=== PATIENT | female | born 1940 | race Caucasian/White ===

== ENCOUNTER 2017-01-28 11:15 | Emergency (ER) | payer MEDICARE, OTHER ==
[~2017-01-28 11:15] MED LIST: CALCIUM PO; DURAGESIC DPS25 MCG TD; MELATONIN5 MG PO; MULTIVITAMINS1 EAC1 PO; SYNTHROID88 MCG PO
--- NOTE | 2017-02-21 21:30 | ER ---
ADMIT: 01/28/2017 RM/LOC: ER [facility] MR#: [id number] [id number] [place] [address] [place] [address] Emergency Room Report SEX: F AGE: 76 : 1940 DATE: 01/28/2017 This 76-year-old who picked up a frying lema 2 days ago, felt sudden wrist pain. See T-sheet for history and physical. X-rays revealed a displaced triquetral fracture in her right wrist. She was splinted, placed in a sling, and instructed follow up Dr. Parra this coming week. DIAGNOSIS: Fracture. Jersey Schmidt MD/ mallory JOB #: [id number] CC: Jersey Schmidt MD, Attending Physician
== END 2017-01-28 14:00 | disposition home or self-care (01) ==
LOC: ER 11:15
DX: S62.111A Displaced fracture of triquetrum [cuneiform] bone, right wrist, initial encounter for closed fracture (principal); F17.210 Nicotine dependence, cigarettes, uncomplicated; Z88.5 Allergy status to narcotic agent; Z79.899 Other long term (current) drug therapy; X58.XXXA Exposure to other specified factors, initial encounter; Y92.009 Unspecified place in unspecified non-institutional (private) residence as the place of occurrence of the external cause